=== PATIENT | female | born 1930 | race Caucasian/White ===

== ENCOUNTER 2020-08-02 12:36 | Inpatient (IN) | payer MEDICARE ==
[~2020-08-02] VITALS: Ht 170.2 cm; Wt 64.4 kg
[~2020-08-02 12:36] MED LIST: ALDACTONE25 MG PO; AMARYL4 MG PO; ASPIRIN EC81 MG PO; AZITHROMYCIN250 MG PO; BUMEX 1MG TABLET1 MG PO; CARDENE 30MG CA30 MG PO; CATAPRES 0.1MG0.1 MG PO; COZAAR100 MG PO; CYANOCOBAL1000 MCG/1 IM; DILTIAZEM 24HR300 M1 PO; DILTIAZEM HCL60 MG PO; ELIQUIS 5 MG TAB5 MG PO; FENOFIBRATE160 MG PO; GLUCOPHAGE500 MG PO; HYDRALAZINE HCL50 MG PO; HYDROCHLOROTHIA25 MG PO; ICAPS AREDS SO1 EACH PO; JANUVIA100 MG PO; LASIX40 MG PO; LIPITOR TAB 2020 MG PO; LOPRESSOR50 MG PO; OMNICEF 300 MG300 MG PO; PROTONIX40 MG PO; SYNTHROID100 MCG PO; TESSALON PERLE100 MG PO; TOUJEO MAX300 UNIT/1 SQ; VENTOLIN HFA 66.7 GM INH; ZANTAC150 MG PO
[2020-08-02 13:28] LABS: RED BLOOD COUNT 3.22 M/UL (4.00-5.10); WHITE BLOOD COUNT 7.4 K/UL (4.5-11.0)
[2020-08-02 13:59] LABS: BUN/CREATININE RATIO 13 (0-10)
[2020-08-02] MEDS ORDERED: LEVOTHYROXINE112 MCG PO (16:32)
[2020-08-02] MEDS ORDERED: GLUCOPHAGE XR500 M1 PO (16:32)
[2020-08-02] MEDS ORDERED: FUROSEMIDE40 MG PO (16:35)
[2020-08-02] MEDS ORDERED: MACROBID 100 M100 MG PO (17:47)
[2020-08-02] MEDS ORDERED: IPRAT-ALBUT 0.5-3 ML INH (17:50)
[2020-08-02] MEDS ORDERED: PROTONIX40 MG PO (17:55)
[2020-08-02] MEDS ORDERED: DAILY VITE1 EACH PO (17:56)
[2020-08-02] MEDS ORDERED: VITAMIN B-12500 MCG PO (17:57)
[2020-08-02] MEDS ORDERED: PROBIOTIC1 EAC1 PO (18:38)
[2020-08-02 20:08] LABS: HEMOGLOBIN 8.5 gm/dl (12.3-15.3)
[2020-08-03 03:38] LABS: HEMOGLOBIN 8.2 gm/dl (12.3-15.3); RED BLOOD COUNT 2.99 M/UL (4.00-5.10); WHITE BLOOD COUNT 5.9 K/UL (4.5-11.0)
[2020-08-04 05:20] LABS: HEMOGLOBIN 7.7 gm/dl (12.3-15.3)
[2020-08-04 05:39] LABS: BUN/CREATININE RATIO 25 (0-10)
--- NOTE | 2020-08-04 23:30 | NUR ---
PATIENT ONLY DRANK A LITTLE OVER HALF OF GOLYT[place]. SHE STATES "I CANNOT DRINK ANYMORE". I INFORMED HER THAT IF SHE IS NOT CLEANED OUT THAT SHE WOULD LIKELY HAVE TO START THE PREP ALL OVER. PATIENT STATED SHE WOULD JUST GO HOME. SHE DENIED ANY NAUSEA AND DID NOT WANT IV ZOFRAN WHEN OFFERED MULTIPLE TIMES. HER STOOL IS LIQUID, MAROON-BROWN COLOR WITH NO SOLIDS NOTED. WILL CONTINUE TO ENCOURAGE GOLYTELY.
[2020-08-05 05:11] LABS: HEMOGLOBIN 8.5 gm/dl (12.3-15.3); RED BLOOD COUNT 3.12 M/UL (4.00-5.10); WHITE BLOOD COUNT 5.5 K/UL (4.5-11.0)
[2020-08-05 05:33] LABS: BUN/CREATININE RATIO 18 (0-10)
[2020-08-06 03:48] LABS: HEMOGLOBIN 8.8 gm/dl (12.3-15.3); RED BLOOD COUNT 3.2 M/UL (4.00-5.10); WHITE BLOOD COUNT 5.4 K/UL (4.5-11.0)
[2020-08-06 04:11] LABS: BUN/CREATININE RATIO 13 (0-10)
--- NOTE | 2020-08-07 03:13 | NUR ---
89 PT BP 168/97 HR 89 GAVE METOPROLOL 50 MG. RECHECK BP WAS 193/106 HR [id number] ARANGO. ORDER [id number] MG IV ONE TIME. PT ANXIETY WAS VERY HIGH. SPOKE WITH HER DAUGHTER OVER THE PHONE. PT STATING SHE IS SMOTHERING. O2 100%. CALLED RESPIRATORY, PT REQUEST A BREATHING TREATMENT. WHEN [facility] GOT HER AND SET UP THE TREATMENT, PT REFUSED IT. SAID IT DIDN'T SMELL LIKE HERS. DR. ARANGO ORDERED ATIVAN 0.5 MG IV ONE TIME. AFTER SITTING WITH THE PT AND TRYING TO EASE HER ANXIETY, RECHECKED HER BP 198/102 HR 110. ORDER FOR LABETALOL 20MG IV ONE TIME. PUSHED OVER 3 MINUTES. RECHECKED 5 MINUTES LATER. 155/88 HR 102. WILL CONTINUE TO MONITOR.
[2020-08-07 05:07] LABS: HEMOGLOBIN 9.2 gm/dl (12.3-15.3)
[2020-08-07 05:34] LABS: BUN/CREATININE RATIO 11 (0-10)
[2020-08-07] MEDS ORDERED: POTASSIUM CHLO20 ME1 PO (16:33)
== END 2020-08-07 18:31 | disposition home or self-care (01) | DRG 378 ==
LOC: ER1 12:36 → M/S 14:51 → CDU 14:51 → M/S 14:51
PROVIDERS: Family Medicine; Internal Medicine Gastroenterology; Physician Assistant Medical; ADMIT Internal Medicine
PROC: 0DJ08ZZ Inspection of Upper Intestinal Tract, Via Natural or Artificial Opening Endoscopic (ICD-10-PCS; principal; 2020-08-05 08:55)
PROC: 0DJD8ZZ Inspection of Lower Intestinal Tract, Via Natural or Artificial Opening Endoscopic (ICD-10-PCS; 2020-08-07)
DX: K57.31 Diverticulosis of large intestine without perforation or abscess with bleeding (principal); D62 Acute posthemorrhagic anemia; J96.11 Chronic respiratory failure with hypoxia; I50.32 Chronic diastolic (congestive) heart failure; N17.9 Acute kidney failure, unspecified; I13.0 Hypertensive heart and chronic kidney disease with heart failure and stage 1 through stage 4 chronic kidney disease, or unspecified chronic kidney disease; I48.20 Chronic atrial fibrillation, unspecified; R00.1 Bradycardia, unspecified; E87.6 Hypokalemia; E03.9 Hypothyroidism, unspecified; I25.10 Atherosclerotic heart disease of native coronary artery without angina pectoris; N18.9 Chronic kidney disease, unspecified; Z20.822 Contact with and (suspected) exposure to COVID-19; E11.22 Type 2 diabetes mellitus with diabetic chronic kidney disease; I27.20 Pulmonary hypertension, unspecified; E78.5 Hyperlipidemia, unspecified; K64.4 Residual hemorrhoidal skin tags; K64.0 First degree hemorrhoids; Z90.49 Acquired absence of other specified parts of digestive tract; Z88.0 Allergy status to penicillin; Z88.8 Allergy status to other drugs, medicaments and biological substances; Z82.49 Family history of ischemic heart disease and other diseases of the circulatory system
CPT/HCPCS: 36415; 36430; 80048; 80053; 82272; 82550; 82553; 82962; 83735; 83874; 84484; 85014; 85018; 85025; 85027; 85610; 86850; 86900; 86901; 86920; 93005; 94640; 94760; 99284; J0360; J2060; J2250; J2405; J2704; J3010; J7040; P9016; U0002

== ENCOUNTER 2020-08-12 17:30 | Emergency (ER) | payer MEDICARE ==
[~2020-08-12 17:30] MED LIST changes: +DAILY VITE1 EACH PO; +FUROSEMIDE40 MG PO; +GLUCOPHAGE XR500 M1 PO; +IPRAT-ALBUT 0.5-3 ML INH; +LEVOTHYROXINE112 MCG PO; +MACROBID 100 M100 MG PO; +POTASSIUM CHLO20 ME1 PO; +PROBIOTIC1 EAC1 PO; +VITAMIN B-12500 MCG PO
[2020-08-12 19:08] LABS: HEMOGLOBIN 9.1 gm/dl (12.3-15.3); RED BLOOD COUNT 3.29 M/UL (4.00-5.10); WHITE BLOOD COUNT 7.5 K/UL (4.5-11.0)
[2020-08-12] MEDS ORDERED: OMNICEF 300 MG300 MG PO (21:31)
== END 2020-08-12 22:02 | disposition home or self-care (01) ==
LOC: ER1 17:30
PROVIDERS: Physician Assistant Medical
DX: N39.0 Urinary tract infection, site not specified (principal); E87.6 Hypokalemia; I48.91 Unspecified atrial fibrillation; I25.2 Old myocardial infarction; E11.9 Type 2 diabetes mellitus without complications; I10 Essential (primary) hypertension; Z90.49 Acquired absence of other specified parts of digestive tract; Z90.89 Acquired absence of other organs; Z88.0 Allergy status to penicillin; Z90.710 Acquired absence of both cervix and uterus
CPT/HCPCS: 70450; 71045; 80053; 81001; 82550; 82553; 83874; 84484; 85025; 85610; 87077; 87086; 87186; 93005; 96374; 99285; J0696